=== PATIENT | male | born 1965 | race Caucasian/White ===

== ENCOUNTER 2020-10-06 02:29 | Observation (INO) | payer BC ==
[2020-10-06 05:08] VITALS: BMI 33.7
[2020-10-06] MEDS ORDERED: Acetaminophen 325 MG TAB PO PRN (10:41)
[2020-10-06 10:44] LABS: SARS-CoV-2 PCR by NAA Not Detected (NotDetected)
[2020-10-06] MEDS ORDERED: Venlafaxine HCl XR 75 MG CAP PO SCH (11:30)
[2020-10-06] MEDS ORDERED: Famotidine 20 MG TAB PO SCH ×2 (11:45→21:00)
[2020-10-06 11:59] VITALS: BP 138/89; TEMP 98.1
[2020-10-06] MEDS ORDERED: predniSONE 20 MG TAB PO SCH (12:00)
[2020-10-06] MEDS ORDERED: Loratadine 10 MG TAB PO SCH (12:00)
[2020-10-07] MEDS ORDERED: predniSONE 20 MG TAB PO SCH (08:00)
[2020-10-07] MEDS ORDERED: Loratadine 10 MG TAB PO SCH (09:00)
[2020-10-07] MEDS ORDERED: Venlafaxine HCl XR 75 MG CAP PO SCH (09:00)
== END 2020-10-06 16:06 | disposition home or self-care (01) ==
LOC: ERS 02:29 → T4-B 04:00
PROVIDERS: ADMIT Internal Medicine; ATTEND Internal Medicine
DX: T78.3XXA Angioneurotic edema, initial encounter (principal); I25.10 Atherosclerotic heart disease of native coronary artery without angina pectoris; I25.2 Old myocardial infarction; F32.9 Major depressive disorder, single episode, unspecified; F41.9 Anxiety disorder, unspecified; Z20.822 Contact with and (suspected) exposure to COVID-19; Z79.899 Other long term (current) drug therapy; Z88.8 Allergy status to other drugs, medicaments and biological substances
CPT/HCPCS: 99284; G0378; J7512; U0003; U0005